=== PATIENT | male | born 1995 | race Caucasian/White ===

== ENCOUNTER 2025-02-17 14:34 | Emergency (ER) | payer OTHER, SELFPAY ==
--- NOTE | 2025-02-17 14:39 | ED_ITS ---
HPI - URI/Sore Throat General Chief Complaint: Upper Respiratory Infection Stated Complaint: flu symptoms Time Seen by Provider: 02/17/25 14:52 Source: patient, RN notes reviewed and old records reviewed Mode of arrival: ambulatory Limitations: no limitations History of Present Illness HPI Narrative: 29-year-old male presents to the [facility] with 4 hours of nausea, vomited once, diarrhea and headache. Has taken Tylenol. Reports 4 hours ago he had a fever of 102.3. Treatments prior to arrival: acetaminophen Related Data Allergies Allergy/AdvReac Type Severity Reaction Status Date / Time No Known Allergies Allergy Verified 02/17/25 14:49 Review of Systems Review of Systems: All systems reviewed & are unremarkable except as noted in HPI and below Constitutional: Constitutional: Reports as per HPI, Reports body ache(s), Reports fatigue, Reports fever(s) and Reports headache(s) ENT: Reports system reviewed and no additional complaints, except as docume nted Cardiovascular: Cardiovascular: Reports no additional cardiovascular complaints, Denies chest pain and Denies dyspnea Respiratory: Respiratory: Reports no additional respiratory complaints, Denies chest congestion, Denies cough and Denies dyspnea Gastrointestinal: Gastrointestinal: Reports as per HPI Musculoskeletal: Musculoskeletal: Reports no additional musculoskeletal compl aints Integumentary/Breasts: Skin/Breast: Reports system reviewed and no additional complaints, except as docu PMFSH Comments At the time of my signature, I reviewed and agree with the nursing past medical, surgical, social, and family history. There is no relevant family history pertinent to the patient complaint. Exam Const: General: cooperative, healthy appearing, comfortable, no acute distress, well developed, alert and well nourished Nutritional Appearance: well nourished Orientation/consciousness: patient oriented x3 Limitations: no limitations HENMT: Head: normal to inspection Ears: hearing grossly normal bilaterally, external ears normal, TM's normal bilaterally, EAC's normal, mastoids normal and no periauricular adenopathy Face/Nose/Sinus: Normal external nose present, Normal nares present and No nasal discharge present Mouth: Yes Normal oral and palatal mucosa present, Yes lip normal, Yes tongue normal and Yes moist mucous membranes Throat: uvula midline, postnasal drainage and no uvular edema Eyes: General: appearance normal, both eyes and all related structures Alignment and Position: alignment normal Neck: Neck: normal visual inspection, full ROM, no lymphadenopathy and no meningeal signs Chest: Chest palpation & inspection: normal inspection of the chest Resp: Effort & Inspection: normal respiratory effort and able to speak in complete sentences Auscultation: clear to auscultation bilaterally, no crackles, no rales, no rhonchi and no wheezes Cardio: Rate: regular rate GI: GI Palp: No abdominal tenderness and Yes Soft to palpation Auscultation: normal bowel sounds Skin: General skin exam: normal color and no rashes or lesions noted Neuro: General: patient oriented x3, gait normal, moves all extremities and no meningeal signs Cognition (Neuro): normal cognition Speech: normal speech Gait exam (Neuro): Normal gait present Extrem: General: normal to inspection, full ROM, capillary refill normal and normal gait Psych: Appearance: grossly normal and well kempt Mental Status: mental status grossly normal Speech and movement: Normal speech and movement present and Clear speech present Affect: normal affect Attitude: cooperative Course Course Level of Care: Express Care Visit Vital Signs Vital signs: Vital Signs Temperature 97.7 F 02/17/25 14:45 Pulse Rate 65 02/17/25 14:45 Respiratory Rate 16 02/17/25 14:45 Blood Pressure 134/88 02/17/25 14:45 Pulse Oximetry 97 02/17/25 14:45 Oxygen Delivery Room Air 02/17/25 14:45 Temperature 97.7 F 02/17/25 14:45 Pulse Rate 65 02/17/25 14:45 Respiratory Rate 16 02/17/25 14:45 Blood Pressure 134/88 02/17/25 14:45 Pulse Oximetry 97 02/17/25 14:45 Oxygen Delivery Room Air 02/17/25 14:45 Reviewed MDM - URI/Sore Throat MDM Narrative Medical decision making narrative: Patient sitting comfortably in exam room. Nontoxic, vitals stable. Patient in no acute distress. Patient presents with 4 hour history of gastritis, flu-like symptoms. Patient's flu and COVID test were negative in clinic. Appropriate for outpatient treatment and follow-up Discharge instructions reviewed with patient, as well as provided in writing per nursing staff. The instructions also include specific and strict return/GO TO THE ER as well as f/u information. All questions have been answered, and the patient deny any further questions with discharge and discharge plan. Some parts of this dictation were generated by voice recognition software and may contain typographical and/or grammatical inaccuracies. Differential Diagnosis Differential diagnosis: Likely upper respiratory infection, otitis media, sinusitis, viral infection, bronchitis, influenza and pharyngitis Lab Data Labs: Lab Results 02/17/25 Range/Units 14:48 POC Influenza A Ag Negative (Negative) POC Influenza B Ag Negative (Negative) POC SARS CoV-2 Ag Negative (Negative) Reviewed Critical Care Time Critical Care Time Critical Care Time: No Discharge Plan Discharge Clinical Impression: Gastroenteritis Patient Disposition: Home, Self-Care Condition: Stable Instructions: Antibiotic Form, Gastroenteritis (ED) Additional Instructions: If you are concern for flu or COVID even though your tests here were negative today. It is recommended you purchase a test and take an at home in 24-48 hours. Viral gastritis you should not be eating anything fried, greasy, spicy or highly process Hydration is extremely important plenty of water, Gatorade, Pedialyte, ice pops in Jell-O Take nausea medication as prescribed Take Motrin alternating with Tylenol as needed for pain For new or worsening symptoms such as the feeling of dehydration or abdominal pain. Unable to keep fluids down please proceed to the nearest emergency room Patient Language: Arabic Prescriptions: New ondansetron 4 mg tablet,disintegrating 4 mg PO Q8H PRN (Reason: nausea and vomiting) Qty: 7 0RF Follow-up/Referrals: UNKNOWN,DOCTOR [Non-Staff] - Stand Alone Forms: Work/School Release IP Time of Disposition: 15:01
[2025-02-17 14:45] VITALS: BP 134/88; PULSE 65; RESP 16; TEMP 36.5; O2SAT 97
--- OUTSIDE RECORDS SUMMARY | 2025-02-17 15:01 | XMS_ITS | Referral Summary ---
Author Organization [facility] Address [address] [place] [address] Care Team Providers Care Assistant Strength Coach Name Role Phone Elving-DialSue MD Primary Care Provider Allergies No known active allergies Medications al & mag hydroxide with simethicone-diphenh ydramine-lidocaine (MAGIC MOUTHWASH) suspension [id number]:Ac [place] nasopharyngitis Swish and swallow 15 mL every 4 (four) hours as needed (pharyngitis) May substitute with kit 240 mL 03/29/20 22 Active Additional Information Patient not taking.Reported on 07/12/2024 methylPREDNISolone (Medrol, Jose A,) 4 mg DosepackIndications :Acute nasopharyngitis follow package directions 1 packet 03/29/20 22 Active Additional Information Patient not taking.Reported on 07/12/2024 ondansetron (Zofran) 4 mg tabletIndications:A cute nasopharyngitis Take 1 tablet (4 mg total) by mouth every 8 (eight) hours as needed for nausea or vomiting 20 tablet 03/29/20 22 Active Additional Information Patient not taking.Reported on 07/12/2024 azithromycin (Zithromax Z-Jose A) 250 mg tablet Take 1 tablet (250 mg total) by mouth daily Take first 2 tablets together, then 1 every day until finished. 6 tablet 10/02/[address] (PROTONIX) 20 mg EC tablet Take 1 tablet (20 mg total) by mouth daily 20 tablet 10/02/20 24 025 Active ondansetron (ZOFRAN) 4 mg tablet Take 1 tablet (4 mg total) by mouth every 4 (four) hours as needed for nausea or vomiting 15 tablet 10/02/20 24 Active Active Problems Problem Noted Date Diagnosed Date Sprain of left ankle 07/12/2024 Sore on toe 11/11/2020 Social History Tobacco Use Types Packs/Day Years Used Date Smoking Tobacco: Former Smokeless Tobacco: Former Chew Quit: 03/29/2020 Tobacco Cessation:Counseling Given: Not Answered Alcohol Use Standard Drinks/Week Comments Not Currently 0 (1 standard drink = 0.6 oz pur e alcohol) Personal Safety Answer Date Recorded Have you ever been in or are you currently in a harmful physical or emotional relationship or is someone making you feel afraid or unsafe? 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 Gender Identity Not on file Sexual Orientation Not on file Last Filed Vital Signs Vital Sign Reading Time Taken Comments Blood Pressure 127/71 10/02/2024 12:30 AM CDT Pulse 72 10/02/2024 12:40 AM CDT Temperature 37.6 C (99.7 F) 10/02/2024 12:20 AM CDT Respiratory Rate 18 10/02/2024 12:23 AM CDT Oxygen Saturation 94% 10/02/2024 12:40 AM CDT Inhaled Oxygen Concentration - - Weight 79.4 kg (175 lb) 10/02/2024 12:23 AM CDT Height 165.1 cm (5' 5 ) 10/02/2024 12:23 AM CDT Body Mass Index 29.12 10/02/2024 12:23 AM CDT Plan of Treatment Not on file Insurance [facility] Care Teams Assistant Strength Coach Relationship Specialty Start Date End Date Sue Flores MD [address] [place] [id number] PCP - General Family Medicine 10/02/24
--- OUTSIDE RECORDS SUMMARY | 2025-02-17 15:01 | XMS_ITS | Clinical Summary ---
Author Organization [facility] Address [address] [place] [address] Care Team Providers Care Pot Pusher Name Role Phone Elving-DialSue MD Primary Care Provider Allergies No known active allergies Medications al & mag hydroxide with simethicone-diphenh ydramine-lidocaine (MAGIC MOUTHWASH) suspension 7-5-1Lmlweyufoew:Ac [place] nasopharyngitis Swish and swallow 15 mL every [...] left ankle 07/12/2024 Sore on toe 11/11/2020 Family History Medical History Relation Name Comments Diabetes Father No Known Problems Mother Relation Name Status Comments Father Alive Mother Alive Social History Tobacco Use Types Packs/Day Years [...] on file 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 Gender Identity Not on file Sexual Orientation Not on file Obstetrics History Last Filed Vital Signs Vital Sign Reading [...] 10/02/2024 12:23 AM CDT Plan of Treatment Health Maintenance Due Date Last Done Comments Depression Screening 1995 Hepatitis C Screening 1995 Varicella Vaccines (1 of 2 - 13+ 2-dose series) 2008 HPV Vaccines (3 - Male 3-dose series) 03/12/2013 12/18/2012, 05/26/2012 Regular Well Visit/Exam 18-64 2013 DTaP/Tdap/Td Vaccine (7 - Td or Tdap) 07/16/2017 07/16/2007, 07/27/2001, 12/28/1996, Additional history exists Influenza Vaccine (#1) 2024 12/18/2012 Hepatitis B Screening Completed 07/02/1996 , 01/28/1996, 1995 Pneumococcal vaccine <65 Aged Out No longer eligible based on patient's age to complete this topic Insurance [facility] Care Teams Pot Pusher Relationship Specialty Start Date End Date Sue Flores MD [address] [place] [id number] PCP - General Family Medicine 10/02/24
[2025-02-17 15:08] LABS: EDCOVIDSCREEN Negative (Negative); EDINFLUASCREEN Negative (Negative); EDINFLUBSCREEN Negative (Negative)
== END 2025-02-17 15:06 | disposition home or self-care (01) ==
PROVIDERS: Emergency Provider Nurse Practitioner
DX: K52.9 Noninfective gastroenteritis and colitis, unspecified (principal); Z20.822 Contact with and (suspected) exposure to COVID-19
CPT/HCPCS: 87426; 87804; 99213; G0463

== ENCOUNTER 2025-04-13 17:27 | Emergency (ER) | payer OTHER, SELFPAY ==
--- OUTSIDE RECORDS SUMMARY | 2025-04-13 17:29 | XMS_ITS | Referral Summary ---
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
--- OUTSIDE RECORDS SUMMARY | 2025-04-13 17:29 | XMS_ITS | Clinical Summary ---
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
[2025-04-13 17:30] VITALS: BP 133/88; PULSE 66; RESP 18; TEMP 36.8; O2SAT 100
--- NOTE | 2025-04-13 17:39 | ED_ITS ---
HPI - Nausea/Vomiting/Diarrhea General Chief complaint: Nausea/Vomiting/Diarrhea Stated complaint: vomiting Time Seen by Provider: 04/13/25 17:40 Source: patient and RN notes reviewed Mode of arrival: ambulatory Limitations: no limitations History of Present Illness HPI Narrative: 29-year-old male presents with concern for nausea, vomiting, diarrhea for 3 days. Reports 3 room vomiting episodes today and 4-5 diarrhea stools today. He denies fever, body aches, chills, sweats. Denies nasal congestion, rhinorrhea, sore throat. Denies abdominal pain. MD elicited complaint: nausea, vomiting and diarrhea Related Data Allergies Allergy/AdvReac Type Severity Reaction Status Date / Time No Known Allergies Allergy Verified 04/13/25 17:38 Review of Systems Review of Systems: CONSTITUTIONAL: Denies malaise, chills, sweats, or fever. ENT: Denies rhinorrhea, congestion, sinus pain, otalgia or sore throat. CARDIOVASCULAR: Denies chest pain, palpitations, or edema. RESPIRATORY: Denies cough or dyspnea. GASTROINTESTINAL: Denies abdominal pain, bloody, or mucous stools. Reports nausea, vomiting, diarrhea GENITOURINARY: Denies dysuria or hematuria. MUSCULOSKELETAL: Denies myalgia. NEUROLOGIC: Denies headache. All systems reviewed & are unremarkable except as noted in HPI and below PMFSH Comments At time of signature, agree with nursing past medical, surgical, social and family history. There is no relevant family history pertinent to the presenting complaint Exam Narrative: GENERAL: Well-appearing, well-nourished, and in no acute distress. HEAD: Normocephalic, atraumatic. EYES: PERRLA, conjunctivae clear, and EOMI. ENT: Nares clear, turbinates pink, no rhinorrhea or epistaxis. Mucous membranes moist. Oropharynx without edema, erythema, or lesions. Tonsils not enlarged and without exudate. NECK: Supple. No lymphadenopathy CHEST: Speaks in full sentences. No respiratory distress. HEART: Regular rate and rhythm. ABDOMEN: Soft, flat, nondistended, nontender. No guarding, rebound tenderness, or rigidity. No pulsatile masses. Bowel sounds present in all four quadrants. No organomegaly. No periumbilical tenderness. No Supra public tenderness or distension. SKIN: Warm, dry, no rash. NEURO: Alert and oriented x3. PSYCH: Normal mood and affect Course Course Emergency Course: Patient is aware of diagnosis, understands and agrees to treatment plan. Anticipatory guidance given. Patient agrees to follow-up as directed and is aware of reasons to seek care at the emergency department. Portions of this record may have been created with voice recognition software Level of Care: Express Care Visit Vital Signs Vital signs: Vital Signs Temperature 98.3 F 04/13/25 17:30 Pulse Rate 66 04/13/25 17:30 Respiratory Rate 18 04/13/25 17:30 Blood Pressure 133/88 04/13/25 17:30 Pulse Oximetry 100 04/13/25 17:30 Oxygen Delivery Room Air 04/13/25 17:30 Temperature 98.3 F 04/13/25 17:30 Pulse Rate 66 04/13/25 17:30 Respiratory Rate 18 04/13/25 17:30 Blood Pressure 133/88 04/13/25 17:30 Pulse Oximetry 100 04/13/25 17:30 Oxygen Delivery Room Air 04/13/25 17:30 Reviewed. MDM - Nausea/Vomiting/Diarrhea MDM Narrative Medical decision making narrative: No evidence of pancreatitis, AAA, cholecystitis, choledocholithiasis, cholangitis, mesenteric ischemia, small bowel obstruction, diverticulitis, colitis, appendicitis, or pelvic etiology such as testicular torsion. Patient has no history of peptic ulcer, H. pylori, chronic aspirin NSAID or corticosteroid use, chronic alcohol use, no history of inflammatory bowel disease, no history of active abdominal infection or malignancy. Patient has no history of hernia or intra-abdominal surgeries, patient denies absence of flatus, constipation, melena, hematemesis. Patient denies post-prandial pain. No pain-out of proportion. Exam findings show no acute concerns or changes; patient is non-toxic appearing and is in no distress. Patient is appropriate for outpatient treatment and follow-up. Critical Care Time Critical Care Time Critical Care Time: No Discharge Plan Discharge Clinical Impression: Nausea vomiting and diarrhea Patient Disposition: Home Condition: Stable Instructions: Antibiotic Form, Acute Nausea and Vomiting (ED) Additional Instructions: Stay hydrated. Take small sips of fluid containing electrolytes frequently. You should go to the hospital if you experience return of persistent nausea and vomiting that does not resolve and does not allow you to tolerate any food or fluids, persistent fevers for greater than 2-3 more days, increasing abdominal pain that persists despite medications, persistent diarrhea, dizziness, syncope (fainting), or for any other concerns. Patient Language: Kinyarwanda Prescriptions: New ondansetron 4 mg tablet,disintegrating 4 mg PO Q6H PRN (Reason: nausea and vomiting) Qty: 6 0RF No Action ondansetron 4 mg tablet,disintegrating 4 mg PO Q8H PRN (Reason: nausea and vomiting) Qty: 7 0RF Follow-up/Referrals: UNKNOWN,DOCTOR [Primary Care Provider] - Stand Alone Forms: Work/School Release IP Time of Disposition: 17:48
== END 2025-04-13 17:50 | disposition home or self-care (01) ==
PROVIDERS: Emergency Provider Nurse Practitioner
DX: R11.2 Nausea with vomiting, unspecified (principal); R19.7 Diarrhea, unspecified
CPT/HCPCS: 99213; G0463